=== PATIENT | male | born 1995 | race Asian ===

== ENCOUNTER 2018-09-28 09:18 | Emergency (ER) | payer OTHER ==
[~2018-09-28] VITALS: Ht 170.2 cm; Wt 68.0 kg
--- NOTE | 2018-09-28 09:28 | NUR ---
ED Nurse Note: Patient walked into ED from home c/o epigastric pain and nausea for 3 days. patient denies having continuous diarrhea. patient denies vomiting. patient states he smokes marijuana.
[2018-09-28 09:40] VITALS: BP 120/82
[2018-09-28] MEDS ORDERED: Dicyclomine HCl 10mg/5ml oral soln ORAL ONE (09:45)
[2018-09-28] MEDS ORDERED: Mylanta II UD 30ml ORAL ONE (09:45)
[2018-09-28] MEDS ORDERED: Lidocaine 2% Visc 15ml soln ORAL ONE (09:45)
[2018-09-28] MEDS ORDERED: Dicyclomine HCl 10mg/5ml oral soln ONE (09:48)
[2018-09-28] MEDS ORDERED: Lidocaine 2% Visc 15ml soln ONE (09:49)
[2018-09-28] MEDS ORDERED: Mylanta II UD 30ml ONE (09:51)
[2018-09-28] MEDS ORDERED: ONDANSETRON ODT4 MG BC (10:04)
[2018-09-28] MEDS ORDERED: RANITIDINE HCL150 MG ORAL (10:04)
[2018-09-28 10:14] VITALS: BP 120/82
--- NOTE | 2018-09-28 10:14 | NUR ---
ER DISCHARGE NOTE: Patient is cleared to be discharged per ERMD, pt is aox4, on room air, with stable vital signs. pt was given dc and prescription instructions, pt was able to verbalize understanding, pt id band removed without complications. pt is able to ambulate with steady gait. pt took all belongings.
--- NOTE | 2018-09-28 11:04 | Emergency Room Report ---
History of Present Illness General Chief Complaint: Abdominal Pain Source: Patient Present Illness HPI 22-year-old male presents ED for evaluation. Patient complaining of abdominal pain with nausea. Started 3 days ago after drinking alcohol and eating some junk food late-night. Pain is epigastric, burning, 5 out of 10, nonradiating. Notes nausea, denies vomiting. Denies chest pain or shortness of breath. Denies fevers chills. Denies diarrhea. No other aggravating relieving factors. Denies any other associated symptoms Allergies: Coded Allergies: No Known Allergies (Unverified , 09/28/18) Patient History Past Medical History: none Past Surgical History: none Pertinent Family History: none Social History: Reports: alcohol use; Denies: smoking, drug use Immunizations: UTD Reviewed Nursing Documentation: PMH: Agreed; PSxH: Agreed Nursing Documentation-PMH Past Medical History: No Stated History Review of Systems All Other Systems: negative except mentioned in HPI Physical Exam Vital Signs Date Time Temp Pulse Resp B/P (MAP) Pulse Ox O2 Delivery O2 Flow Rate FiO2 09/28/18 09:22 97.5 68 18 122/86 99 Room Air Sp02 EP Interpretation: reviewed, normal General Appearance: no apparent distress, alert, GCS 15, non-toxic Head: normocephalic, atraumatic Eyes: bilateral eye normal inspection, bilateral eye PERRL ENT: hearing grossly normal, normal pharynx, no angioedema, normal voice Neck: full range of motion, supple/symm/no masses Respiratory: chest non-tender, lungs clear, normal breath sounds, speaking full sentences Cardiovascular #1: regular rate, rhythm, no edema Cardiovascular #2: 2+ carotid (R), 2+ carotid (L), 2+ radial (R), 2+ radial (L) , 2+ dorsalis pedis (R), 2+ dorsalis pedis (L) Gastrointestinal: normal bowel sounds, non tender, soft, non-distended, no guarding, no rebound Rectal: deferred Genitourinary: normal inspection, no CVA tenderness Musculoskeletal: back normal, gait/station normal, normal range of motion, non- tender Neurologic: alert, oriented x3, responsive, motor strength/tone normal, sensory intact, speech normal Psychiatric: judgement/insight normal, memory normal, mood/affect normal, no suicidal/homicidal ideation Reflexes: 3+ bicep (R), 3+ bicep (L), 3+ tricep (R), 3+ tricep (L), 3+ knee (R) , 3+ knee (L) Skin: normal color, no rash, warm/dry, well hydrated Lymphatic: no adenopathy Medical Decision Making Diagnostic Impression: Primary Impression: Gastritis Qualified Codes: K29.00 - Acute gastritis without bleeding ER Course Hospital Course 22-year-old M presents to ED with epigastric pain differential diagnosis: gastritis, SBO, cholecystits Clinical course Patient placed on stretcher. 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 After initial history, physical exam reveals male in no acute distress. Abdomen soft. No guarding or rebound. Mucous membranes moist. Good capillary refill. Vital stable. No clinical signs of dehydration I do not believe patient requires IV hydration at this time. Discussed findings with patient. Given GI cocktail, Pepcid here. On reassessment patient feels better. Safe for discharge close outpatient follow-up. States he has a PMD I feel this is a highly complex case requiring extensive working including EKG/ Rhythm strip, Xray/CT/US, Blood/urine lab work, repeat exams while in ED, and administration of strong opiates/narcotics for pain control, admission to hospital or close patient follow up. Diagnosis - gastritis Stable and discharged to home with prescriptions for Zantac, zofran. Followup with PMD. Return to ED if symptoms recur or worsen Last Vital Signs Date Time Temp Pulse Resp B/P (MAP) Pulse Ox O2 Delivery O2 Flow Rate FiO2 09/28/18 09:40 97.5 68 18 120/82 99 Room Air Status: improved Disposition: HOME, SELF-CARE Condition: Stable Scripts Ondansetron Odt* (ZOFRAN ODT*) 4 Mg Tab.rapdis 4 MG BC EVERY 8 HOURS, #10 TAB 0 Refills Prov: Georgi Marshall MD 09/28/18 Ranitidine Hcl* (ZANTAC*) 150 Mg Tablet 150 MG ORAL TWICE A DAY, #30 TAB Prov: Georgi Marshall MD 09/28/18 Patient Instructions: Gastritis, Adult, [id number] Georgi Marshall MD Sep 28, 2018 11:04
== END 2018-09-28 10:14 | disposition home or self-care (01) ==
LOC: EMR 09:45
DX: K29.70 Gastritis, unspecified, without bleeding (principal)
CPT/HCPCS: 99283